=== PATIENT | female | born 1985 | race Caucasian/White ===

== ENCOUNTER → 2017-03-01 | Outpatient (CLI) | payer OTHER ==
--- NOTE | 2017-03-01 12:14 | KCIC ---
Indication: Unable to hear heart tones. There is a single live fetus in a breech presentation. heart rate was recorded at 153 bpm. Amniotic fluid volume appears normal. The placenta is anterior. The fetus measures approximately 15 weeks 5 days gestational age. Biometry measurements are as follows: BPD 3.1 cm 15 weeks 5 days, head circumference 11.5 cm 15 weeks 4 days, abdominal circumference 9.7 cm 15 weeks 6 days, femur length 1.8 cm 15 weeks 3 days. IMPRESSION: Single live IUP 15 weeks 5 days gestational age with an estimated date of confinement sonographically of 08/18/2017. No complicating features are detected. Electronically signed by: Fracisco Shankar MD (03/01/2017 12:11 PM)
== END | disposition home or self-care (01) ==
LOC: KCIC US 09:27
PROVIDERS: ATTEND Family Medicine
DX: O32.1XX0 Maternal care for breech presentation, not applicable or unspecified (principal); Z3A.15 15 weeks gestation of pregnancy
CPT/HCPCS: 76801; 76817

== ENCOUNTER → 2017-04-17 | Outpatient (CLI) | payer OTHER ==
--- NOTE | 2017-04-17 12:49 | KCIC ---
Examination: Obstetric ultrasound greater than 14 weeks HISTORY: History of supervision of normal COMPARISON: 03/01/2017 FINDINGS: Single living intrauterine identified with heart rate of 139 bpm. movement is seen. Cardiac activity seen. 4 chamber heart seen. 3 vessel CORD seen. Cord insertion visualized. Fluid in the bladder, stomach, kidneys, spine, breathing visualized. position is breech. Cervical length 6.8 cm. Amniotic fluid is normal with amniotic fluid index of 14.8 cm. The biparietal diameter measures 5.6 cm corresponding to 23 weeks and 1 day +/- 12 days. Head circumference 20.68 cm corresponding to 22 weeks and 5 days +/- 10 days. Abdominal circumference 18.58 cm corresponding to 23 weeks and 3 days +/- 14 days. Femur length is 3.8 cm corresponding to 22 weeks and 1 day +/- 13 days. Cephalic index 77.4 Head circumference to abdominal circumference ratio 1.11. Femur length to biparietal diameter ratio 67.6. Femur length to head circumference 18.4. Femur length abdominal circumference 20.5. Estimated weight 540 g +/- 80 grams. LMP is 12/26/2016. Clinical history 22 weeks and 3 days. Estimated date of delivery 08/18/2017. Ultrasound is 22 weeks and 6 days with estimated date of delivery by ultrasound 08/15/2017. IMPRESSION: Single living intrauterine with ultrasound age 22 weeks and 6 days. Electronically signed by: Huber Pabon MD (04/17/2017 12:45 PM) [email or web address]
== END | disposition home or self-care (01) ==
LOC: KCIC US 08:59
PROVIDERS: ATTEND Family Medicine
DX: Z34.82 Encounter for supervision of other normal pregnancy, second trimester (principal); Z3A.22 22 weeks gestation of pregnancy
CPT/HCPCS: 76805

== ENCOUNTER → 2017-07-18 | Outpatient (CLI) | payer OTHER ==
--- NOTE | 2017-07-18 11:21 | KCIC ---
OB ultrasound dated 07/18/2017: No comparison available. Clinical Indication: Excessive growth. Findings: There is a single intrauterine gestation in cephalic presentation. The placenta is anterior and fundal in location without evidence of placental previa. The amount of amniotic fluid appears appropriate. JEFFY equals 16.9 cm. Cervical length 6.9 cm. Biometrical data is as follows: BPD = 9.7 cm for 39 weeks 3 days. HC = 34.4 cm for 39 weeks 6 days. AC = 35.2 cm for 39 weeks 1 days. FL = 7.8 cm for 40 weeks 0 days. Overall, the estimated sonographic gestational age is 39 weeks 4 days for an estimated date of delivery of 07/21/2017. LMP was not provided. Estimated weight is 3786 g.. Complete survey was not performed. heart rate estimated at 144 bpm. There is positive movement. Impression: 1. Single viable intrauterine gestation with estimated sonographic gestational age of 39 weeks 4 days. Recommend clinical correlation. 2. No acute findings.. Electronically signed by: Pako Baig MD (07/18/2017 11:18 AM) [facility]
== END | disposition home or self-care (01) ==
LOC: KCIC US 10:23
PROVIDERS: ATTEND Family Medicine
DX: O36.63X0 Maternal care for excessive fetal growth, third trimester, not applicable or unspecified (principal); Z3A.39 39 weeks gestation of pregnancy
CPT/HCPCS: 76805

== ENCOUNTER 2017-07-25 14:10 | Observation (INO) | payer OTHER ==
--- NOTE | 2017-07-25 15:52 | RAD ---
Clinical Indication: Large for dates. Excessive growth. Technique: Study is dated July 25, 2017. Comparison is from July 18, 2017. Transabdominal imaging was performed. Findings: There is a single intrauterine gestation in cephalic presentation. The placenta is anterior in location without evidence of placental previa. Limited cervical evaluation demonstrates no definite shortening. There is no funneling. JEFFY measured 24.3 cm. This value is increased. Biometrical data is as follows: BPD = 9.67 cm, with a corresponding gestational age of 39 weeks 4 days. HC = 34.82 cm, with a corresponding gestational age of 40 weeks 3 days. AC = 35.41 cm, with a corresponding gestational age of 39 weeks 2 days. FL = 7.76 cm, with a corresponding gestational age of 39 weeks 5 days. Ratio of head circumference to abdominal circumference is 0.98. Cephalic index is 83%. Overall, the estimated sonographic gestational age is 39 weeks 5 days for an estimated date of delivery of July 27, 2017. Estimated weight is 3822 g. Full survey was not performed. heart tones are 131 bpm. Impression: 1. Estimated gestational age by ultrasound is 39 weeks 5 days compared to a reported clinical age of 36 weeks 4 days. Correlate with accuracy of clinical dates. 2. Amniotic fluid index today measures 24.3 cm, whether this patient is considered 36 weeks or 39 weeks gestational age, this is above the 95th percentile. Short-term follow-up for this polyhydramnios is recommended.
== END 2017-07-25 15:30 | disposition home or self-care (01) ==
LOC: US 14:10 → 3 SO LND 14:50
PROVIDERS: ADMIT Family Medicine; ATTEND Family Medicine
DX: O26.843 Uterine size-date discrepancy, third trimester (principal); Z3A.36 36 weeks gestation of pregnancy
CPT/HCPCS: 76805; 76817; G0379; 59025

== ENCOUNTER 2017-08-03 15:10 | Observation (INO) | payer OTHER ==
[2017-08-03] MEDS ORDERED: IV RINGERS,LACTATED 1000ML 1,000 ML IV SCH (16:48)
== END 2017-08-03 16:10 | disposition home or self-care (01) ==
LOC: 3 SO LND 15:10
PROVIDERS: ADMIT Family Medicine; ATTEND Family Medicine
DX: Z34.93 Encounter for supervision of normal pregnancy, unspecified, third trimester (principal); Z3A.37 37 weeks gestation of pregnancy
CPT/HCPCS: 59025; G0379

== ENCOUNTER 2017-08-04 20:35 | Inpatient (IN) | payer OTHER ==
[~2017-08-04] VITALS: Ht 170.2 cm; Wt 89.4 kg
[2017-08-04] MEDS: IV RINGERS,LACTATED 1000ML 1,000 ML IV SCH (20:54)
[2017-08-04] MEDS ORDERED: 0.9 % SODIUM CHLORIDE 10 ML DISP.SYRIN. IV PRN (21:00)
[2017-08-04] MEDS ORDERED: TERBUTALINE 1 MG/ML VIAL. SQ PRN (21:00)
[2017-08-04] MEDS ORDERED: IBUPROFEN 600 MG TABLET. PO PRN (21:00)
[2017-08-04] MEDS ORDERED: BUTORPHANOL 2 MG/ML VIAL. IV PRN (21:00)
[2017-08-04] MEDS ORDERED: fentaNYL PF VIAL 100 MCG/2 ML VIAL IV PRN (21:00)
[2017-08-04] MEDS ORDERED: ZOLPIDEM 5 MG TABLET. PO PRN (21:00)
[2017-08-04] MEDS ORDERED: ACETAMINOPHEN 325 MG TABLET. PO PRN (21:00)
[2017-08-04] MEDS ORDERED: LIDOCAINE 1% PF 30 ML VIAL. INJ PRN (21:00)
[2017-08-04] MEDS ORDERED: ONDANSETRON PF 4 MG/2 ML VIAL. IV PRN (21:00)
[2017-08-04] MEDS ORDERED: OXYTOCIN 30 UNIT/500 ML PREMIX 500 ML IV PRN ×2 (21:00)
[2017-08-04] MEDS ORDERED: MAG HYDROX/ALUMINUM HYD/SIMETH 30 ML ORAL.SUSP PO PRN (21:00)
[2017-08-04 21:02] VITALS: BP 109/64
[2017-08-04] MEDS ORDERED: DINOPROSTONE 10 MG SUPP.VAG VG ONE (21:30)
[2017-08-04 21:40] LABS: HEMATOCRIT 37.5 % (36.0-47.0); HEMOGLOBIN 12.6 g/dL (12.0-15.5); RED BLOOD COUNT 4.03 x10^6/uL (3.50-5.40); RED CELL DISTRIBUTION WIDTH 13.4 % (11.5-14.5); WHITE BLOOD COUNT 11.2 x10^3/uL (4.0-11.0)
--- NOTE | 2017-08-05 08:24 | PDOC1 ---
OB - History Hx of Present Care: Good Care Ultrasounds: Abnormal US findings Abnormal Ultrasound Findings: polyhydramnios, high estimated weight Obstetrical Complications: Other (See above) Medical Complications: None Past Family/Social History * Past Medical, Surgical, Family and Obstetric Histories reviewed from chart. Blood Type: O+ Rubella: Immune RPR/VDRL: Negative GBS Status: Negative HBsAG: Negative OB - Chief Complaint & HPI Date of Admission: Date of Admission: Aug 04, 2017 at 20:35 Chief Complaint/History : 3 Para: 2 EDC: Jul 20, 2018 Reason for admission: induction of labor Indication for induction: medical complication (polyhydramnios) Admission Nurse Assessment Rev: No Problems: OB - Admission Exam Physical Exam Vitals: VS - Last 72 Hours, by Label Date Time Temp Pulse Resp B/P (MAP) Pulse Ox O2 Delivery O2 Flow Rate FiO2 08/04/17 21:02 98.6 94 20 109/64 (79) Room Air 98.6 HEENT: Normal, Nasal Mucosa Normal, Oropharynx Normal, Moist Membranes, Fontanelles Normal Heart: Regular Rate Lungs: Clear, Equal Abdomen: Gravid, Non tender Extremities: Normal Pulses, No tenderness or swelling Reflexes: Normal Cervical Dilatation: Fingertip Effacement: 25% Station: -2 Membranes: Intact Heart Rate: Normal Accelerations: Accelerations Present Decelerations: Variable decelerations Short Term Variability: Present Fci Variability: Moderate Contractions on Admission: None A/P Pt is a 32yo @38.1wga admitted for IOL 2/2 polyhydramnios 1)Polyhydramnios- consultation with Dr. [place] yesterday who agreed with early IOL. Pt is s/p cervadil last night, will start Pitocin this morning 2)GBS negative Problems: RICK SALAZAR MD Aug 05, 2017 08:24
[2017-08-05] MEDS ORDERED: OXYTOCIN in NORMAL SALINE PREMIX 30 UNIT/500 ML BAG. IV ONE (10:30)
[2017-08-05] MEDS: IV RINGERS,LACTATED 1000ML 1,000 ML IV SCH (15:07)
[2017-08-05] MEDS ORDERED: DINOPROSTONE 10 MG SUPP.VAG VG ONE (18:00)
[2017-08-06] MEDS ORDERED: DOCUSATE SODIUM 283 MG/5 ML ENEMA. PR ONE (08:00)
[2017-08-06] MEDS: IV RINGERS,LACTATED 1000ML 1,000 ML IV SCH ×2 (10:13→13:31)
[2017-08-06] MEDS ORDERED: fentaNYL PF VIAL 100 MCG/2 ML VIAL EPI ONE (12:45)
[2017-08-06] MEDS ORDERED: NALOXONE 0.4 MG/ML VIAL. IV PRN (12:45)
[2017-08-06] MEDS ORDERED: ONDANSETRON PF 4 MG/2 ML VIAL. IV PRN (12:45)
[2017-08-06] MEDS ORDERED: L&D EPIDURAL CASSETTE 100 ML EP PRN (12:45)
[2017-08-06] MEDS ORDERED: ROPIVacaine 0.2% PF 10 ML VIAL. EPI ONE (12:45)
[2017-08-06] MEDS ORDERED: L&D EPIDURAL CASSETTE 100 ML EP ONE (12:46)
[2017-08-06] MEDS ORDERED: ROPIVacaine 0.2% IN 0.9%NACL PF 40 MG/20 ML DISP.SYRIN. ONE ×2 (12:46→13:00)
--- NOTE | 2017-08-06 18:22 | PDOC ---
VAGINAL DELIVERY DATE DATE: 08/06/17 TIME 1744 : 3 Para: 3 EDC: Aug 18, 2017 EGA: 38.2 VAGINAL DELIVERY: VTX VACCUM ASSISTED: No PLACENTA: Spontaneous 9/9 SEX: Female WEIGHT Weight 3785g or 8 pounds 5oz Nuchal Cord: No Amniotic Fluid: Clear PAIN: Epidural EPISIOTOMY: No EXTENSION: Yes (3rd degree perianal, 1st degree periurethral) REPAIRED WITH 3'0 vicryl EBL 350cc COMPLICATIONS None CONDITION Stable RELOCATION COORDINATOR Gustavo Signs of Intrauterine Infectio: None Shoulder Dystocia: No DIAGNOSIS Pt is a 32yo [id number] s/p @ 38.2wga 1)IOL 2/2 polyhydramnios 2)GBS negative 3) Problems: RICK SALAZAR MD Aug 06, 2017 18:22
[2017-08-06] MEDS ORDERED: diphenhydrAMINE HCL 25 MG CAPSULE PO PRN (18:30)
[2017-08-06] MEDS ORDERED: MAG HYDROX/ALUMINUM HYD/SIMETH 30 ML ORAL.SUSP PO PRN (18:30)
[2017-08-06] MEDS ORDERED: MMR per PROTOCOL. MC PRN (18:30)
[2017-08-06] MEDS ORDERED: ZOLPIDEM 5 MG TABLET. PO PRN (18:30)
[2017-08-06] MEDS ORDERED: DOCUSATE SODIUM 100 MG CAPSULE. PO PRN (18:30)
[2017-08-06] MEDS ORDERED: MAGNESIUM HYDROXIDE 2,400 MG/30 ML ORAL.SUSP. PO PRN (18:30)
[2017-08-06] MEDS ORDERED: ACETAMINOPHEN 325 MG TABLET. PO PRN (18:30)
[2017-08-06] MEDS ORDERED: HYDROCORTISONE 1% TOPICAL OINTMENT 30GM TUBE. TP PRN (18:30)
[2017-08-06] MEDS ORDERED: BENZOCAINE 20% TOPICAL AEROSOL SPRAY 57GM CAN. TP PRN (18:30)
[2017-08-06] MEDS ORDERED: PHENYLEPH/MINERAL OIL/PETROLAT RECTAL OINTMENT 28GM TUBE. RC PRN (18:30)
[2017-08-06] MEDS ORDERED: 0.9 % SODIUM CHLORIDE 10 ML DISP.SYRIN. IV PRN (18:30)
[2017-08-06] MEDS ORDERED: SIMETHICONE 80 MG TAB.CHEW PO PRN (18:30)
[2017-08-06] MEDS ORDERED: OXYTOCIN 30 UNIT/500 ML PREMIX 500 ML IV PRN (18:30)
[2017-08-06 21:30] VITALS: BP 108/73
[2017-08-06] MEDS: IBUPROFEN 800 MG TABLET. PO SCH (23:19)
[2017-08-07 01:40] VITALS: BP 96/61
[2017-08-07 03:11] LABS: RPR REFLEX Non Reactive (Non Reactive)
[2017-08-07 05:47] VITALS: BP 90/55
[2017-08-07] MEDS: IBUPROFEN 800 MG TABLET. PO SCH (06:00)
[2017-08-07 06:17] LABS: HEMATOCRIT 35.1 % (36.0-47.0); HEMOGLOBIN 12.2 g/dL (12.0-15.5); RED BLOOD COUNT 3.79 x10^6/uL (3.50-5.40); RED CELL DISTRIBUTION WIDTH 13.9 % (11.5-14.5); WHITE BLOOD COUNT 15.1 x10^3/uL (4.0-11.0)
[2017-08-07] MEDS ORDERED: FERROUS SULFATE 325 MG TABLET. PO SCH (08:00)
--- NOTE | 2017-08-07 08:14 | PDOC ---
OB Progress Note Date of Service 08/07/17 Time of Evaluation 0745 Date: 08/06/17 Time: 1743 Notes Mom doing well. Having some pain with urination but not bad. Passing gas, no BM. Pain moderately controlled with Ibuprofen. Bleeding currently heavier than period. Some struggles with infant latching OB VITAL SIGNS: Temperature (98.2), Blood Pressure (90/55), Pulse (70), O2 Sat (98%) Lab Laboratory Tests Test 08/07/17 06:00 White Blood Count 15.1 x10^3/uL (4.0-11.0) Red Blood Count 3.79 x10^6/uL (3.50-5.40) Hemoglobin 12.2 g/dL (12.0-15.5) Hematocrit 35.1 % (36.0-47.0) Mean Corpuscular Volume 93 fL (79-100) Mean Corpuscular Hemoglobin 32 pg (25-35) Mean Corpuscular Hemoglobin Concent 35 g/dL (31-37) Red Cell Distribution Width 13.9 % (11.5-14.5) Platelet Count 189 x10^3/uL (140-400) Laboratory Tests Test 08/07/17 06:00 White Blood Count 15.1 x10^3/uL (4.0-11.0) Red Blood Count 3.79 x10^6/uL (3.50-5.40) Hemoglobin 12.2 g/dL (12.0-15.5) Hematocrit 35.1 % (36.0-47.0) Mean Corpuscular Volume 93 fL (79-100) Mean Corpuscular Hemoglobin 32 pg (25-35) Mean Corpuscular Hemoglobin Concent 35 g/dL (31-37) Red Cell Distribution Width 13.9 % (11.5-14.5) Platelet Count 189 x10^3/uL (140-400) Medications Current Medications Sodium Chloride (Normal Saline Flush) 3 ml QSHIFT PRN IV AFTER MEDS AND BLOOD DRAWS; Start 08/04/17 at 21:00 Ringer's Solution 1,000 ml @ 125 mls/hr Q8H IV Last administered on t 13:31; Start 08/04/17 at 20:54; Stop 08/07/17 at 07:29; Status DC Butorphanol Tartrate (Stadol) 2 mg PRN Q1HR PRN IV Severe labor pain; Start at 21:00; Stop 08/07/17 at 07:29; Status DC Fentanyl Citrate (Fentanyl 2ml Vial) 100 mcg PRN Q20MIN PRN IV Labor pain; Start 08/04/17 at 21:00; Stop 08/07/17 at 07:29; Status DC Acetaminophen (Tylenol) 650 mg PRN Q6HRS PRN PO MILD PAIN / TEMP Last administered on 08/05/17 20:01; Start 08/04/17 at 21:00 Ondansetron HCl (Zofran) 4 mg PRN Q4HRS PRN IV NAUSEA/VOMITING; Start at 21:00; Stop 08/07/17 at 07:29; Status DC Al Hydroxide/Mg Hydroxide (Mylanta Plus Xs) 30 ml PRN Q4HRS PRN PO HEARTBURN / GAS; Start 08/04/17 at 21:00; Stop 08/07/17 at 07:29; Status DC Zolpidem Tartrate (Ambien) 5 mg PRN QHS PRN PO INSOMNIA; Start 08/04/17 at 21: 00; Stop 08/07/17 at 07:29; Status DC Terbutaline Sulfate (Brethine) 0.25 mg 1X PRN PRN SQ SEE COMMENTS; Start 08/04 at 21:00; Stop 08/05/17 at 20:59; Status DC Lidocaine HCl 30 ml 1X PRN PRN INJ SEE COMMENTS; Start 08/04/17 at 21:00; Stop 08/06/17 at 20:59; Status DC Oxytocin/Sodium Chloride 500 ml @ 0 mls/hr CONT PRN IV SEE I/O RECORD Last administered on 08/06/17 10:17; Start 08/04/17 at 21:00; Stop 08/07/17 at 07 :29; Status DC Oxytocin/Sodium Chloride 500 ml @ 0 mls/hr CONT PRN PRN IV Post delivery bleeding; Start 08/04/17 at 21:00 Ibuprofen (Motrin) 600 mg PRN Q6HRS PRN PO MODERATE PAIN; Start 08/04/17 at 21 :00 Dinoprostone (Cervidil) 10 mg 1X ONCE VG Last administered on 08/04/17 21:29 ; Start 08/04/17 at 21:30; Stop 08/04/17 at 21:31; Status DC Dinoprostone (Cervidil) 10 mg 1X ONCE VG Last administered on 08/05/17 20:00 ; Start 08/05/17 at 18:00; Stop 08/05/17 at 18:01; Status DC Docusate Sodium (Enemeez) 283 mg 1X ONCE AK Last administered on 08/06/17 07 :41; Start 08/06/17 at 08:00; Stop 08/06/17 at 08:01; Status DC Naloxone HCl (Narcan) 0.04 mg PRN Q1MIN PRN IV SEE COMMENTS; Start 08/06/17 at 12:45 Fentanyl Citrate (Fentanyl 2ml Vial) 100 mcg 1X ONCE EPI ; Start 08/06/17 at 12:45; Stop 08/07/17 at 07:29; Status DC Ropivacaine/ Fentanyl/NS 100 ml @ 14 mls/hr CONT PRN EP PAIN Last administered on 08/06/17 13:37; Start 08/06/17 at 12:45; Stop 08/07/17 at 07 :29; Status DC Ondansetron HCl (Zofran) 4 mg PRN Q6HRS PRN IV NAUSEA/VOMITING; Start at 12:45 Ropivacaine (Naropin 0.2%) 20 ml 1X ONCE EPI ; Start 08/06/17 at 12:45; Stop 08/07/17 at 07:29; Status DC Ropivacaine/ Fentanyl/NS 100 ml @ As Directed STK-MED ONCE EP ; Start at 12:46; Stop 08/07/17 at 07:29; Status DC Ropivacaine/ Sodium Chloride 40 mg STK-MED ONCE .ROUTE ; Start 08/06/17 at 12: 46; Stop 08/07/17 at 07:29; Status DC Ephedrine Sulfate (Akovaz) 50 mg STK-MED ONCE .ROUTE ; Start 08/06/17 at 13:13 ; Stop 08/07/17 at 07:29; Status DC Sodium Chloride (Normal Saline Flush) 10 ml QSHIFT PRN IV AFTER MEDS AND BLOOD DRAWS; Start 08/06/17 at 18:30; Stop 08/07/17 at 07:29; Status DC Oxytocin/Sodium Chloride 500 ml @ 62.5 mls/hr CONT PRN IV SEE I/O RECORD; Start 08/06/17 at 18:30; Stop 08/07/17 at 02:29; Status DC Acetaminophen (Tylenol) 650 mg PRN Q6HRS PRN PO MILD PAIN / TEMP; Start at 18:30 Ibuprofen (Motrin) 800 mg Q8HRS PO Last administered on 08/06/17 23:19; Start 08/06/17 at 22:00; Stop 08/07/17 at 07:39; Status DC Docusate Sodium (Colace) 100 mg PRN BID PRN PO CONSTIPATION; Start 08/06/17 at 18:30 Magnesium Hydroxide (Milk Of Magnesia) 2,400 mg PRN DAILY PRN PO CONSTIPATION; Start 08/06/17 at 18:30 Al Hydroxide/Mg Hydroxide (Mylanta Plus Xs) 30 ml PRN Q4HRS PRN PO HEARTBURN / GAS; Start 08/06/17 at 18:30 Simethicone (Gas-X) 80 mg PRN AFTMEALHC PRN PO GAS / BLOATING; Start 08/06/17 at 18:30 Diphenhydramine HCl (Benadryl) 25 mg PRN Q6HRS PRN PO ITCHING; Start 08/06/17 at 18:30 Benzocaine (Americaine) 1 spray PRN QID PRN TP TOPICAL PAIN Last administered on 08/06/17 23:18; Start 08/06/17 at 18:30 Phenyleph/Shark Oil/Min Oil/Petrol (Preparation H) 1 june PRN QID PRN RC RECTAL PAIN; Start 08/06/17 at 18:30 Hydrocortisone (Cortaid) 1 june PRN QID PRN TP PERINEAL PAIN; Start 08/06/17 at 18:30 Ferrous Sulfate (Feosol) 325 mg BIDWMEALS PO ; Start 08/07/17 at 08:00; Stop 08/07/17 at 08:00; Status DC Zolpidem Tartrate (Ambien) 5 mg PRN QHS PRN PO INSOMNIA, MAY REPEAT X1; Start 08/06/17 at 18:30 Info (Do NOT chart on this placeholder) 1 ea 1X PRN PRN MC SEE COMMENTS; Start 08/06/17 at 18:30; Stop 08/07/17 at 07:29; Status DC Info (Do NOT chart on this placeholder) 1 ea 1X PRN PRN MC SEE COMMENTS; Start 08/06/17 at 18:30 Ibuprofen (Motrin) 800 mg PRN Q8HRS PRN PO PAIN; Start 08/07/17 at 07:45 Exam GEN: NAD, AOx3 HEENT: MMM, EOMI, no scleral icterus/injection Cardiac: RRR, no M/R/G Lungs: CTAB Abd: abdominal binder on Ext: no erythema/edema LE bilaterally Nuero: CN2-12 GI Assessment Pt is a 32yo [id number] s/p @ 38.2wga 1)IOL 2/2 polyhydramnios 2)GBS negative 3) RICK SALAZAR MD Aug 07, 2017 08:14
[2017-08-07] MEDS ORDERED: DOCUSATE SODIUM 100 MG CAPSULE. PO SCH (08:15)
[2017-08-07] MEDS: DOCUSATE SODIUM 100 MG CAPSULE. PO SCH ×2 (09:29→20:04)
[2017-08-07 09:38] VITALS: BP 104/73
[2017-08-07 14:06] VITALS: BP 102/70
[2017-08-07 17:00] VITALS: BP 105/68
[2017-08-07] MEDS: IBUPROFEN 800 MG TABLET. PO PRN (20:04)
[2017-08-07 20:50] VITALS: BP 104/73
[2017-08-08 05:49] VITALS: BP 91/50
[2017-08-08 08:00] VITALS: BP 117/78
--- NOTE | 2017-08-08 08:26 | PDOC3 ---
OB DISCHARGE SUMMARY DATE OF ADMISSION: 08/04/17 DATE OF DISCHARGE: 08/08/17 REASON FOR ADMISSION: Induction of labor PROCEDURES: Ultrasound, Mgmt of OB Complications INTRAPARTUM PROCEDURES: Spontanous Vag Deliv, Perineal Laceration DISCHARGE DIAGNOSIS: Term Delivered DISCHARGE INFORMATION: Activity (As tolerated), Diet (Regular), Medications ( Ibuprofen, Docusate), Instructions (Follow up with Dr. Salazar in 4-6 weeks for visit), Discharge to (Home) HOSPITAL COURSE Pt is a 32yo [id number] s/p @ 38.2wga 1)IOL 2/2 polyhydramnios 2)GBS negative 3) 4) control- unsure, pt considering IUD RCIK SALAZAR MD Aug 08, 2017 08:26
[2017-08-08] MEDS: DOCUSATE SODIUM 100 MG CAPSULE. PO SCH (10:24)
[2017-08-08 15:30] VITALS: BP 93/58
[2017-08-08] MEDS: IBUPROFEN 800 MG TABLET. PO PRN (17:58)
== END 2017-08-08 18:10 | disposition home or self-care (01) | DRG 775 ==
LOC: 3 SO LND 20:35 → 3 NORTH 08-06 21:30
PROVIDERS: ADMIT Family Medicine; ATTEND Family Medicine
PROC: 10E0XZZ Delivery of Products of Conception, External Approach (ICD-10-PCS; principal; 2017-08-06)
PROC: 0DQR0ZZ Repair Anal Sphincter, Open Approach (ICD-10-PCS; 2017-08-06)
PROC: 0UQMXZZ Repair Vulva, External Approach (ICD-10-PCS; 2017-08-06)
PROC: 3E0R3BZ Introduction of Anesthetic Agent into Spinal Canal, Percutaneous Approach (ICD-10-PCS; 2017-08-06)
PROC: 00HU33Z Insertion of Infusion Device into Spinal Canal, Percutaneous Approach (ICD-10-PCS; 2017-08-06)
PROC: 10907ZC Drainage of Amniotic Fluid, Therapeutic from Products of Conception, Via Natural or Artificial Opening (ICD-10-PCS; 2017-08-06)
PROC: 3E0P7VZ Introduction of Hormone into Female Reproductive, Via Natural or Artificial Opening (ICD-10-PCS; 2017-08-06)
DX: O40.3XX0 Polyhydramnios, third trimester, not applicable or unspecified (principal); O70.20 Third degree perineal laceration during delivery, unspecified; O71.82 Other specified trauma to perineum and vulva; Z37.0 Single live birth; Z3A.38 38 weeks gestation of pregnancy
CPT/HCPCS: 36415; 85027; 86593; 86850; 86900; 86901; J2590; J2795; J7120